=== PATIENT | female | born 1980 | race Caucasian/White ===

== ENCOUNTER 2016-12-06 00:48 | Emergency (ER) | payer OTHER ==
[2016-12-06 00:58] VITALS: BP 184/97
[2016-12-06 01:34] LABS: BASOPHIL % 0.6 % (0-2); PLATELET COUNT 275 x10^3mcL (130-400)
[2016-12-06 01:37] LABS: RED CELL DISTRIBUTION WIDTH 15.6 % (11.5-14.5)
[2016-12-06 01:43] LABS: CALCIUM 8.5 mg/dL (8.5-10.1); CARBON DIOXIDE 26.9 mmol/L (21-32); CHLORIDE SERUM 106 mmol/L (98-107); CREATININE SERUM 0.8 mg/dL (0.6-1.0); GFR1 > 60 mL/min; GLUCOSE SERUM 135 mg/dL (74-106); POTASSIUM SERUM 3.4 mmol/L (3.5-5.1); SODIUM SERUM 141 mmol/L (136-145)
[2016-12-06 01:48] LABS: ALBUMIN 3.1 g/dL (3.4-5.0); ALKALINE PHOSPHATASE 74 U/L (46-116); ALT/SGPT 73 U/L (14-59); AMYLASE 35 U/L (25-115); AST/SGOT 38 U/L (15-37); BILIRUBIN TOTAL 0.21 mg/dL (0.20-1.00); LIPASE 132 IU/L (73-393); TOTAL PROTEIN, SERUM 7.3 g/dL (6.4-8.2)
== END 2016-12-06 02:25 | disposition home or self-care (01) ==
LOC: ED 00:48
PROVIDERS: Emergency Medicine
DX: R10.9 Unspecified abdominal pain (principal); R19.7 Diarrhea, unspecified; E03.9 Hypothyroidism, unspecified; I10 Essential (primary) hypertension; G47.30 Sleep apnea, unspecified
CPT/HCPCS: 36415

== ENCOUNTER 2017-05-28 22:15 | Emergency (ER) | payer OTHER ==
[~2017-05-28] VITALS: Ht 154.9 cm; Wt 149.2 kg
[2017-05-29 00:35] VITALS: BP 165/98
[2017-05-30] MEDS ORDERED: ATENOLOL50 MG PO (03:01)
[2017-05-30] MEDS ORDERED: BENAZEPRIL HYDR20 M1 PO (03:01)
[2017-05-30] MEDS ORDERED: LEVOTHYROXINE0.05 M2 PO (03:01)
== END 2017-05-29 00:35 | disposition home or self-care (01) ==
LOC: ED 22:15
DX: J06.9 Acute upper respiratory infection, unspecified (principal); I10 Essential (primary) hypertension; E03.9 Hypothyroidism, unspecified; G47.30 Sleep apnea, unspecified; E66.01 Morbid (severe) obesity due to excess calories
CPT/HCPCS: J1885

== ENCOUNTER 2017-05-30 00:58 | Inpatient (IN) | payer OTHER ==
[2017-05-30] VITALS (8 sets, daily range): BP systolic 108–190; BP diastolic 58–105
[~2017-05-30] VITALS: Ht 154.9 cm; Wt 154.7 kg
[2017-05-30 02:06] LABS: BASOPHIL % 1.3 % (0-2); PLATELET COUNT 245 x10^3mcL (130-400)
[2017-05-30 02:08] LABS: RED CELL DISTRIBUTION WIDTH 14.7 % (11.5-14.5)
[2017-05-30 02:18] LABS: CALCIUM 8.7 mg/dL (8.5-10.1); CARBON DIOXIDE 30.7 mmol/L (21-32); CREATININE SERUM 1.2 mg/dL (0.6-1.0); POTASSIUM SERUM 3.6 mmol/L (3.5-5.1)
[2017-05-30 02:24] LABS: BILIRUBIN TOTAL 0.18 mg/dL (0.20-1.00); TOTAL PROTEIN, SERUM 7.1 g/dL (6.4-8.2)
[2017-05-30 02:25] LABS: ALBUMIN 2.8 g/dL (3.4-5.0)
[2017-05-30] MEDS ORDERED: ATENOLOL50 MG PO (03:01)
[2017-05-30] MEDS ORDERED: BENAZEPRIL HYDR20 M1 PO (03:01)
[2017-05-30] MEDS ORDERED: LEVOTHYROXINE0.05 M2 PO (03:01)
[2017-05-30 04:33] LABS: T3 TOTAL 0.98 ng/mL
[2017-05-30 04:37] LABS: CHOLESTEROL/HDL RATIO 4.8; MAGNESIUM 1.7 mg/dL (1.8-2.4); PHOSPHOROUS 3.9 mg/dL (2.5-4.9)
[2017-05-30 04:40] LABS: FREE T4 0.9 ng/dL (0.76-1.46); FREE THYROXINE INDEX 2.1 ug/dL (1.4-4.5); T4(THYROXINE) 6.3 ug/dL (4.7-13.3)
[2017-05-30 12:23] LABS: microscopic required? NO
[2017-05-30 13:04] LABS: urine erythrocyte NEGATIVE (NEGATIVE)
[2017-05-30 14:24] LABS: AMPHETAMINE QUAL UR NONE DETECTED (NEG <=1000)
[2017-05-31 05:27] VITALS: BP 138/96
[2017-05-31 06:12] LABS: BASOPHIL % 0.3 % (0-2); PLATELET COUNT 239 x10^3mcL (130-400)
[2017-05-31 06:29] LABS: CALCIUM 8.5 mg/dL (8.5-10.1); CARBON DIOXIDE 32.4 mmol/L (21-32); CHLORIDE SERUM 103 mmol/L (98-107); CREATININE SERUM 0.8 mg/dL (0.6-1.0); GFR1 > 60 mL/min; GLUCOSE SERUM 120 mg/dL (74-106); PHOSPHOROUS 3.7 mg/dL (2.5-4.9); SODIUM SERUM 139 mmol/L (136-145)
[2017-05-31 06:43] LABS: RED CELL DISTRIBUTION WIDTH 15.6 % (11.5-14.5)
[2017-05-31 09:30] VITALS: BP 154/99
[2017-05-31 14:08] VITALS: BP 133/66
[2017-05-31 17:20] VITALS: BP 145/112
[2017-05-31 20:42] VITALS: BP 120/68
[2017-06-01 05:23] VITALS: BP 129/75
[2017-06-01 06:45] VITALS: Ht 154.9 cm; Wt 154.7 kg
[2017-06-01 07:27] LABS: BASOPHIL % 0.4 % (0-2); PLATELET COUNT 227 x10^3mcL (130-400); RED CELL DISTRIBUTION WIDTH 15.6 % (11.5-14.5)
[2017-06-01 07:31] LABS: CALCIUM 8.3 mg/dL (8.5-10.1); CHLORIDE SERUM 105 mmol/L (98-107); CREATININE SERUM 0.8 mg/dL (0.6-1.0); GFR1 > 60 mL/min; GLUCOSE SERUM 107 mg/dL (74-106); PHOSPHOROUS 3.5 mg/dL (2.5-4.9); POTASSIUM SERUM 3.6 mmol/L (3.5-5.1); SODIUM SERUM 140 mmol/L (136-145)
[2017-06-01 08:50] VITALS: BP 166/61
[2017-06-01 18:06] VITALS: BP 146/82
[2017-06-01 21:13] VITALS: BP 150/82
[2017-06-02 04:58] VITALS: BP 153/93
[2017-06-02 05:34] LABS: BASOPHIL % 0.3 % (0-2); PLATELET COUNT 234 x10^3mcL (130-400)
[2017-06-02 05:38] LABS: RED CELL DISTRIBUTION WIDTH 15.5 % (11.5-14.5)
[2017-06-02 06:10] LABS: CALCIUM 8.4 mg/dL (8.5-10.1); CARBON DIOXIDE 30.8 mmol/L (21-32); CHLORIDE SERUM 104 mmol/L (98-107); CREATININE SERUM 0.8 mg/dL (0.6-1.0); GFR1 > 60 mL/min; GLUCOSE SERUM 118 mg/dL (74-106); PHOSPHOROUS 3.6 mg/dL (2.5-4.9); POTASSIUM SERUM 3.7 mmol/L (3.5-5.1); SODIUM SERUM 139 mmol/L (136-145)
[2017-06-02] MEDS ORDERED: PRI20 PO (09:51)
[2017-06-02 09:55] VITALS: BP 109/65
[2017-06-02 10:06] VITALS: BP 109/65
== END 2017-06-02 11:51 | disposition home or self-care (01) | DRG 391 ==
LOC: ED 00:58 → DU 03:02 → MU 03:02 → DU 03:28 → MU 17:46
PROVIDERS: Emergency Medicine; Internal Medicine; ADMIT Family Medicine
PROC: 0DB68ZX Excision of Stomach, Via Natural or Artificial Opening Endoscopic, Diagnostic (ICD-10-PCS; principal; 2017-06-01 08:00)
DX: K29.70 Gastritis, unspecified, without bleeding (principal); E43 Unspecified severe protein-calorie malnutrition; N17.0 Acute kidney failure with tubular necrosis; D68.69 Other thrombophilia; Z68.44 Body mass index [BMI] 60.0-69.9, adult; I10 Essential (primary) hypertension; E11.65 Type 2 diabetes mellitus with hyperglycemia; E11.59 Type 2 diabetes mellitus with other circulatory complications; E83.42 Hypomagnesemia; I16.0 Hypertensive urgency; G47.33 Obstructive sleep apnea (adult) (pediatric); E03.9 Hypothyroidism, unspecified; E66.01 Morbid (severe) obesity due to excess calories; D64.9 Anemia, unspecified
CPT/HCPCS: 43239; 82962; 83880; 84439; 90658; J1200; J1610; J1885; J2250; J2310; J3010; J3490; J7030; Q0092; Q9963; Q9967

== ENCOUNTER 2018-01-04 20:35 | Emergency (ER) | payer OTHER ==
[~2018-01-04] VITALS: Ht 154.9 cm; Wt 142.4 kg
[~2018-01-04 20:35] MED LIST: ATENOLOL50 MG PO; BENAZEPRIL HYDR20 M1 PO; LEVOTHYROXINE0.05 M2 PO; PRI20 PO
[2018-01-04 20:43] VITALS: Ht 154.9 cm; Wt 142.4 kg
[2018-01-04 22:48] VITALS: BP 134/80
== END 2018-01-04 22:48 | disposition home or self-care (01) ==
LOC: ED 20:35
DX: J06.9 Acute upper respiratory infection, unspecified (principal); J20.9 Acute bronchitis, unspecified; I10 Essential (primary) hypertension

== ENCOUNTER 2019-04-13 04:07 | Emergency (ER) | payer OTHER ==
[~2019-04-13] VITALS: Ht 154.9 cm; Wt 144.2 kg
[2019-04-13 06:01] LABS: BASOPHIL % 0.4 % (0-2); PLATELET COUNT 275 x10^3mcL (130-400)
[2019-04-13 06:02] LABS: RED CELL DISTRIBUTION WIDTH 17.4 % (11.5-14.5)
[2019-04-13 06:03] LABS: CALCIUM 8.2 mg/dL (8.5-10.1); CARBON DIOXIDE 29.7 mmol/L (21-32); CREATININE SERUM 1.1 mg/dL (0.6-1.0)
[2019-04-13 06:08] LABS: BILIRUBIN TOTAL 0.16 mg/dL (0.20-1.00); TOTAL PROTEIN, SERUM 7.3 g/dL (6.4-8.2)
[2019-04-13 06:47] VITALS: BP 129/87
== END 2019-04-13 06:47 | disposition home or self-care (01) ==
LOC: ED 04:07
DX: R07.89 Other chest pain (principal); I10 Essential (primary) hypertension; E03.9 Hypothyroidism, unspecified; F41.9 Anxiety disorder, unspecified
CPT/HCPCS: 36415; Q0092

== ENCOUNTER 2019-05-17 15:48 | Emergency (ER) | payer OTHER ==
[~2019-05-17] VITALS: Ht 154.9 cm; Wt 144.8 kg
[2019-05-17 16:18] VITALS: Ht 154.9 cm; Wt 144.8 kg
[2019-05-17 19:22] VITALS: BP 163/90
== END 2019-05-17 19:22 | disposition home or self-care (01) ==
LOC: ED 15:48
DX: J04.0 Acute laryngitis (principal); E66.9 Obesity, unspecified; I10 Essential (primary) hypertension; E03.9 Hypothyroidism, unspecified; F41.9 Anxiety disorder, unspecified; Z68.44 Body mass index [BMI] 60.0-69.9, adult
CPT/HCPCS: J7512

== ENCOUNTER 2019-09-05 22:43 | Emergency (ER) | payer OTHER ==
[~2019-09-05] VITALS: Ht 154.9 cm; Wt 147.9 kg
[2019-09-05 22:46] VITALS: Ht 154.9 cm; Wt 147.9 kg
[2019-09-06 00:37] VITALS: BP 172/103
== END 2019-09-06 00:38 | disposition home or self-care (01) ==
LOC: ED 22:43
DX: N39.0 Urinary tract infection, site not specified (principal); J06.9 Acute upper respiratory infection, unspecified; I10 Essential (primary) hypertension; Z76.0 Encounter for issue of repeat prescription
CPT/HCPCS: J2270; Q0162

== ENCOUNTER 2019-12-06 13:10 | Emergency (ER) | payer OTHER ==
[~2019-12-06] VITALS: Ht 154.9 cm; Wt 145.1 kg
[2019-12-06 13:26] VITALS: Ht 154.9 cm; Wt 145.1 kg
[2019-12-06 15:08] VITALS: BP 156/91
== END 2019-12-06 15:08 | disposition home or self-care (01) ==
LOC: ED 13:10
DX: I10 Essential (primary) hypertension (principal); K08.89 Other specified disorders of teeth and supporting structures; E03.9 Hypothyroidism, unspecified

== ENCOUNTER 2020-04-29 05:33 | Emergency (ER) | payer OTHER ==
[~2020-04-29] VITALS: Ht 154.9 cm; Wt 146.1 kg
[2020-04-29 05:41] VITALS: Ht 154.9 cm; Wt 146.1 kg
[2020-04-29 08:31] LABS: CALCIUM 8.8 mg/dL (8.5-10.1); CARBON DIOXIDE 28.1 mmol/L (21-32); CHLORIDE SERUM 98 mmol/L (98-107); CREATININE SERUM 0.9 mg/dL (0.6-1.0); GFR1 > 60 mL/min; GLUCOSE SERUM 122 mg/dL (74-106); POTASSIUM SERUM 3.4 mmol/L (3.5-5.1); SODIUM SERUM 132 mmol/L (136-145)
[2020-04-29 08:36] LABS: ALKALINE PHOSPHATASE 77 U/L (46-116); ALT/SGPT 18 U/L (14-59); AST/SGOT 10 U/L (15-37); BILIRUBIN TOTAL 0.2 mg/dL (0.20-1.00); TOTAL PROTEIN, SERUM 7.4 g/dL (6.4-8.2)
[2020-04-29 08:39] LABS: ALBUMIN 3.1 g/dL (3.4-5.0)
[2020-04-29 08:59] LABS: BASOPHIL % 0.6 % (0-2); PLATELET COUNT 284 x10^3mcL (130-400); RED CELL DISTRIBUTION WIDTH 17.5 % (11.5-14.5)
[2020-04-29 13:07] VITALS: BP 139/90
== END 2020-04-29 13:07 | disposition home or self-care (01) ==
LOC: ED 05:33
PROVIDERS: Emergency Medicine
DX: R07.89 Other chest pain (principal); I10 Essential (primary) hypertension; E03.9 Hypothyroidism, unspecified
CPT/HCPCS: 85378; J1885; J7030; Q0092

== ENCOUNTER 2020-07-07 23:12 | Emergency (ER) | payer OTHER, SELFPAY ==
[~2020-07-07] VITALS: Ht 154.9 cm; Wt 147.0 kg
[2020-07-07 23:16] VITALS: Ht 154.9 cm; Wt 147.0 kg
[2020-07-08 00:57] LABS: BASOPHIL % 0.7 % (0.2-1.3); PLATELET COUNT 247 x10^3mcL (179-408)
[2020-07-08 01:10] LABS: CALCIUM 8.4 mg/dL (8.5-10.1); CARBON DIOXIDE 27.7 mmol/L (21-32); CHLORIDE SERUM 104 mmol/L (98-107); GFR1 > 60 mL/min; GLUCOSE SERUM 131 mg/dL (74-106); POTASSIUM SERUM 3.8 mmol/L (3.5-5.1); SODIUM SERUM 138 mmol/L (136-145)
[2020-07-08 01:15] LABS: ALKALINE PHOSPHATASE 63 U/L (46-116); ALT/SGPT 35 U/L (14-59); AST/SGOT 27 U/L (15-37); BILIRUBIN TOTAL 0.2 mg/dL (0.20-1.00); TOTAL PROTEIN, SERUM 7.1 g/dL (6.4-8.2)
[2020-07-08 01:17] LABS: rbc morphology (normal/abnorm) NORMAL (NORMAL)
[2020-07-08 03:21] VITALS: BP 143/89
== END 2020-07-08 05:56 | disposition home or self-care (01) ==
LOC: ED 23:12
PROVIDERS: Emergency Medicine
DX: U07.1 COVID-19 (principal); I10 Essential (primary) hypertension; E03.9 Hypothyroidism, unspecified; G43.909 Migraine, unspecified, not intractable, without status migrainosus
CPT/HCPCS: 83880; 85378; U0003

== ENCOUNTER 2020-07-25 04:49 | Emergency (ER) | payer OTHER ==
[~2020-07-25] VITALS: Ht 154.9 cm; Wt 147.9 kg
[2020-07-25 04:51] VITALS: Ht 154.9 cm; Wt 147.9 kg
[2020-07-25 07:37] LABS: CALCIUM 8.4 mg/dL (8.5-10.1); CARBON DIOXIDE 24.7 mmol/L (21-32); CHLORIDE SERUM 103 mmol/L (98-107); CREATININE SERUM 0.9 mg/dL (0.6-1.0); GFR1 > 60 mL/min; GLUCOSE SERUM 131 mg/dL (74-106); POTASSIUM SERUM 3.9 mmol/L (3.5-5.1); SODIUM SERUM 136 mmol/L (136-145)
[2020-07-25 07:41] LABS: PLATELET COUNT 303 x10^3mcL (179-408)
[2020-07-25 07:45] LABS: RED CELL DISTRIBUTION WIDTH 18.7 % (12.3-17.7)
[2020-07-25] MEDS ORDERED: PHECLUD PO (09:37)
[2020-07-25 11:01] VITALS: BP 139/91
== END 2020-07-25 11:01 | disposition home or self-care (01) ==
LOC: ED 04:49
PROVIDERS: Emergency Medicine
DX: R09.1 Pleurisy (principal); R07.89 Other chest pain; I10 Essential (primary) hypertension; E03.9 Hypothyroidism, unspecified; G43.909 Migraine, unspecified, not intractable, without status migrainosus
CPT/HCPCS: 85378; J1885